=== PATIENT | male | born 1965 | race Caucasian/White ===

== ENCOUNTER 2020-12-30 13:00 | Outpatient (CLI) | payer OTHER ==
[~2020-12-30 13:00] MED LIST: Iopamidol-370 76% 500 ML 1 ML ONE
== END 2020-12-30 13:01 | disposition home or self-care (01) ==
LOC: BICCT 13:00
DX: C64.9 Malignant neoplasm of unspecified kidney, except renal pelvis (principal)
CPT/HCPCS: 71260; Q9967